=== PATIENT | female | born 1965 | race Caucasian/White ===

== ENCOUNTER 2020-09-16 08:51 | Emergency (ER) | payer BC, OTHER ==
--- NOTE | 2020-09-16 09:07 | EDM.PDOC ---
ED HPI GENERAL MEDICAL PROBLEM - General Stated Complaint: Bit by a dog Time Seen by Provider: 09/16/20 08:59 Source of Information: Reports: Patient - History of Present Illness INITIAL COMMENTS - FREE TEXT/NARRATIVE: Nicole is a 54 y/o female who presents to the ER after being bitten buy a dog when she was out walking this AM. No other injuries other than her right upper arm. Thinks her last tetanus was 2019. Right Upper Arm Pain Score (Numeric/FACES): 5 - Related Data Allergies Allergy/AdvReac Type Severity Reaction Status Date / Time Antihistamines - Alkylamine Allergy Anxiety Unverified 02/12/16 09:29 aspirin [From [facility]] Allergy Anxiety Verified 02/12/16 09:29 citric acid Allergy Anxiety Verified 02/12/16 09:29 [From [facility]] doxycycline Allergy Cannot Verified 02/12/16 09:29 Remember phenylpropanolamine Allergy Anxiety Verified 02/12/16 09:29 pseudoephedrine Allergy Anxiety Verified 02/12/16 09:29 sodium bicarbonate Allergy Anxiety Verified 02/12/16 09:29 [From [facility]] Home Meds: Home Meds Levothyroxine Sodium [Synthroid] 1 tab PO DAILY 02/08/16 [History] Loratadine [Claritin] 1 tab PO DAILY 02/08/16 [History] Phentermine HCl [Adipex-P] 1 tab PO DAILY 02/08/16 [History] Amoxicillin/Potassium Clav [Augmentin 875-125 Tablet] 1 each PO BID #10 tablet 09/16/20 [Rx] Past Medical History Cardiovascular History: Reports: None Respiratory History: Reports: None Gastrointestinal History: Reports: Other (See Below) Other Gastrointestinal History: family history of colon cancer Neurological History: Reports: None Psychiatric History: Reports: None Endocrine/Metabolic History: Reports: Hypothyroidism Dermatologic History: Reports: None - Past Surgical History HEENT Surgical History: Reports: Naso-Sinus Surgery Female Surgical History: Reports: Tubal Ligation Musculoskeletal Surgical History: Reports: Other (See Below) Review of Systems - Review of Systems Review Of Systems: See Below Constitutional: Reports: No Symptoms Eyes: Reports: No Symptoms Ears: Reports: No Symptoms Nose: Reports: No Symptoms Mouth/Throat: Reports: No Symptoms Respiratory: Reports: No Symptoms Cardiovascular: Reports: No Symptoms GI/Abdominal: Reports: No Symptoms Genitourinary: Reports: No Symptoms Musculoskeletal: Reports: No Symptoms Skin: Reports: Wound (irregular wound with surrounding scratches and laceration ) Neurological: Reports: No Symptoms ED EXAM, GENERAL - Physical Exam Exam: See Below General Appearance: Alert, WD/WN, Other (Adult female, crying and upset.) Ears: Hearing Grossly Normal Nose: Normal Inspection, Normal Mucosa Throat/Mouth: Normal Inspection, Normal Voice Head: Atraumatic, Normocephalic Respiratory/Chest: No Respiratory Distress Cardiovascular: Normal Peripheral Pulses, Regular Rate, Rhythm GI/Abdominal: Normal Bowel Sounds, Soft (Female) Exam: Deferred Rectal (Female) Exam: Deferred Back Exam: Normal Inspection Extremities: No Pedal Edema, Normal Capillary Refill Neurological: Alert, Oriented, CN II-XII Intact, No Motor/Sensory Deficits Psychiatric: Normal Affect, Normal Mood Skin Exam: Warm, Dry, Intact, Wound/Incision (Note 1cm irregular lacerations x 2 on the posterior right upper arm, some mild bleeding.) Course - Vital Signs Text/Narrative:: [id number] The patient was seen by the [facility]. The lacerations were repaired. See Pr ocedure Note. Procedure Note Laceration Repair Following verbal consent of the patient, risks, benefits, and alternatives were reviewed. The 1cm wound on the right posterior upper arm was prepped with Betadine. Lidocaine 2% 2ml was used for local anesthesia. 2 interrupted sutures of 4-0 Vicryl was used for wound closure. Dressing was applied. Wound care instructions were reviewed. The patient tolerated the procedure well. Last Tetanus was verified 2019. Tdap was not given today. EBL=minimal Discharge instructions were given and the patient left the ER in stable condition after she spoke with [employer]. Last Recorded V/S: Last Vital Signs Temp 36.8 C 09/16/20 09:00 Pulse 110 H 09/16/20 09:00 Resp 16 09/16/20 09:00 BP 123/70 09/16/20 09:00 Pulse Ox 97 09/16/20 09:00 - Orders/Labs/Meds Orders: Active Orders 24 hr Category Date Time Status Lidocaine 1% w/EPINEPHrine [Xylocaine 1% with Med 09/16/20 09:15 Ordered EPINEPHrine 1:100,000] 20 ml INFILT ONETIME PRN Medication Orders Lidocaine/Epinephrine (Lidocaine 1% With Epinephrine 1:100,000 20 Ml Mdv) 20 ml INFILT ONETIME PRN PRN Reason: Other Last Admin: 09/16/20 09:19 Dose: 20 ml Documented by: DINO Bojorquezs: Medications Generic Name Dose Route Start Last Admin Trade Name Freq PRN Reason Stop Dose Admin Lidocaine/Epinephrine 20 ml 09/16/20 09:15 09/16/20 09:19 Lidocaine 1% With Epinephrine 1:100,000 20 Ml Mdv INFILT 20 ml ONETIME PRN Administration Other Departure - Departure Time of Disposition: 09:35 Disposition: DC/Tfer to Hospice - Home 50 Condition: Good Clinical Impression: Minor skin laceration Dog bite of arm Qualifiers: Encounter type: initial encounter Laterality: right Qualified Code(s): S41.151A - Open bite of right upper arm, initial encounter; W54.0XXA - Bitten by dog, ini tial encounter - Discharge Information *PRESCRIPTION DRUG MONITORING PROGRAM REVIEWED*: Not Applicable *COPY OF PRESCRIPTION DRUG MONITORING REPORT IN PATIENT NOREEN: Not Applicable Prescriptions: Amoxicillin/Potassium Clav [Augmentin 875-125 Tablet] 1 each PO BID #10 tablet Instructions: Animal Bite, Adult, [id number] Additional Instructions: -Augmentin 875mg oral 2x daily #10(Rx) -Ibuprofen 200mg 3 tablets oral every 6 hours as needed for pain -Acetaminophen 325mg 2-3 tablets oral every 4-6 hours as needed for pain -Keep dressing to wound dry and intact for 24 hours, then you may wash the wound daily with soap and water. -Watch for further signs of infection of non-healing and follow up with your PCP -The sutures that were placed today will dissolve over the next 2-3 weeks, so you do not need to return to the clinic for removal. Allow them to dissolve and and do note attempt to pick or cut them out for at least 2 weeks. -Your Tetanus was not updated at today's visit. Last TDap was 2019. Sepsis Event Note (ED) - Focused Exam Vital Signs: Vital Signs Temp Pulse Resp BP Pulse Ox 09/16/20 09:00 36.8 C 110 H 16 123/70 97 - My Orders Last 24 Hours: My Active Orders 09/16/20 09:15 Lidocaine 1% w/EPINEPHrine [Xylocaine 1% with EPINEPHrine 1:100,000] 20 ml INFILT ONETIME PRN - Assessment/Plan Last 24 Hours: My Active Orders 09/16/20 09:15 Lidocaine 1% w/EPINEPHrine [Xylocaine 1% with EPINEPHrine 1:100,000] 20 ml INFILT ONETIME PRN
[2020-09-16] MEDS ORDERED: Lidocaine 1% with EPINEPHrine 1:100,000 20 ML MDV INFILT PRN (09:15)
[2020-09-16 09:23] VITALS: BP 123/70; PULSE 110
== END 2020-09-16 09:45 | disposition hospice, home (50) ==
LOC: VM.ED 08:51
DX: S41.151A Open bite of right upper arm, initial encounter (principal); E03.9 Hypothyroidism, unspecified; Z88.6 Allergy status to analgesic agent; Z88.8 Allergy status to other drugs, medicaments and biological substances; Z91.018 Allergy to other foods; Z88.1 Allergy status to other antibiotic agents; Z79.899 Other long term (current) drug therapy; W54.0XXA Bitten by dog, initial encounter
CPT/HCPCS: 12001; 99283; 99283-25

== ENCOUNTER 2021-08-27 10:44 | Day surgery (SDC) | payer OTHER ==
[~2021-08-27 10:44] MED LIST: Lactated Ringers 1,000 ML IV SCH
[2021-08-27] MEDS ORDERED: fentaNYL 100 MCG/2 ML SDV ONE (12:07)
[2021-08-27] MEDS ORDERED: Propofol 200 MG/20 ML SDV ONE ×3 (12:07→12:44)
[2021-08-27 13:11] VITALS: PULSE 65
[2021-08-27 13:35] VITALS: BP 146/82
== END 2021-08-27 14:03 | disposition home or self-care (01) ==
LOC: VM.SDS 10:44
PROVIDERS: ATTEND Surgery
DX: Z12.11 Encounter for screening for malignant neoplasm of colon (principal); D12.0 Benign neoplasm of cecum; E03.9 Hypothyroidism, unspecified; E78.00 Pure hypercholesterolemia, unspecified; M85.89 Other specified disorders of bone density and structure, multiple sites; M25.361 Other instability, right knee; F17.210 Nicotine dependence, cigarettes, uncomplicated; Z88.6 Allergy status to analgesic agent; Z88.1 Allergy status to other antibiotic agents; Z98.890 Other specified postprocedural states; Z79.890 Hormone replacement therapy; Z79.899 Other long term (current) drug therapy
CPT/HCPCS: J2704; J3010; J7120